=== PATIENT | male | born 1960 | race Caucasian/White ===

== ENCOUNTER 2016-11-13 07:58 | Emergency (ER) | payer OTHER ==
[2016-11-13 08:55] LABS: URINE BILIRUBIN NEGATIVE (NEGATIVE); URINE BLOOD TRACE (NEGATIVE); URINE GLUCOSE (UA) NORMAL (NORMAL); URINE KETONE NEGATIVE (NEGATIVE); URINE LEUKOCYTE ESTERASE NEGATIVE (NEGATIVE); URINE NITRATE NEGATIVE (NEGATIVE); URINE PROTEIN NEGATIVE (NEGATIVE); UROBILINOGEN NORMAL mg/dL (<1.0)
[2016-11-13 09:21] LABS: URINE RBC RARE /[HPF] (0-2)
== END 2016-11-13 11:00 | disposition home or self-care (01) ==
LOC: ER 07:58
PROVIDERS: General Practice
DX: N20.0 Calculus of kidney (principal); N21.1 Calculus in urethra; K57.90 Diverticulosis of intestine, part unspecified, without perforation or abscess without bleeding; R10.9 Unspecified abdominal pain; E11.9 Type 2 diabetes mellitus without complications; J44.9 Chronic obstructive pulmonary disease, unspecified; F17.210 Nicotine dependence, cigarettes, uncomplicated; Z79.899 Other long term (current) drug therapy; Z79.84 Long term (current) use of oral hypoglycemic drugs
CPT/HCPCS: 81001; 96372; 99070; 99284; 99284-25